=== PATIENT | male | born 1960 | race African-American/Black ===

== ENCOUNTER 2022-03-10 15:30 | Inpatient (IN) | payer MEDICAID, OTHER ==
[~2022-03-10] VITALS: Ht 180.3 cm; Wt 67.8 kg
[2022-03-10] MEDS ORDERED: ASPirin 81 mg TAB PO ONE (15:45)
[2022-03-10] MEDS ORDERED: methylPREDNISolone SOD SUCC 125 MG/2 ML VL IV ONE (15:45)
[2022-03-10 17:48] LABS: Basophils # (auto) 0 10 ^3/uL (0-0.2); Basophils % (auto) 0.4 % (0.0-2.0); Eosinophils # (auto) 0 10 ^3/uL (0-0.8); Hemoglobin 13.1 g/dL (13.5-17.5); Lymphocytes % (auto) 10.1 % (10.0-50.0)
[2022-03-10 17:50] LABS: Eosinophils % (auto) 0.3 % (0.0-7.0); Hematocrit 39.1 % (41.0-53.0); Mean Corpuscular Hemoglobin 25.9 pg (28.0-32.0); Mean Corpuscular Hgb Conc. 33.5 g/dL (32.0-36.0); Mean Corpuscular Volume 77.2 fL (80.0-100.0); Monocytes # (auto) 0.9 10 ^3/uL (0-1.3); Monocytes % (auto) 9.3 % (0.0-12.0); Neutrophils # (auto) 7.8 10 ^3/uL (1.6-8.6); Neutrophils % (auto) 79.9 % (37.0-80.0); Nucleated Red Blood Cells % 0.8 %; Red Blood Cells 5.07 10^6/uL (4.5-5.90); Red Cell Distribution Width 17.5 % (11.8-14.3); White Blood Cell 9.8 10^3/uL (4.4-10.8)
[2022-03-10 18:07] LABS: Albumin 4.1 g/dL (3.4-5.0); Calcium 9.7 mg/dL (8.5-10.1)
[2022-03-10 18:12] LABS: BUN/Creatinine Ratio 22.3; Bilirubin, Total 1.3 mg/dL (0.2-1.0); Total Protein 9.5 g/dL (6.4-8.2)
[2022-03-10] MEDS ORDERED: AZITHROMYCIN 500MG/ 250ML 250 ML IV ONE (18:30)
[2022-03-10] MEDS ORDERED: cefTRIAXone 1GM/50ML D5W 50 ML IV ONE (18:30)
[2022-03-10] MEDS ORDERED: MORPHINE SULFATE INJECTION 2 MG/ML SYRG IV PRN (21:15)
[2022-03-10] MEDS ORDERED: ONDANSETRON HCL 4 MG/2 ML VIAL IV PRN (21:15)
[2022-03-10] MEDS ORDERED: ACETAMINOPHEN 325 MG TAB PO PRN (21:15)
[2022-03-10] MEDS ORDERED: IPRATROPIUM BROM 0.5 MG/2.5ML INH SOL NEB PRN (21:15)
[2022-03-10] MEDS ORDERED: NITROGLYCERIN 0.4 MG SL TAB SL PRN (21:15)
[2022-03-10] MEDS ORDERED: ALBUTEROL SULF 2.5 MG/0.5ML(0.5%) NEB SOLN NEB PRN (21:15)
[2022-03-10] MEDS ORDERED: TEMAZEPAM 15 MG CAP PO PRN (22:00)
[2022-03-10 23:54] VITALS: BP 103/69
[2022-03-11 00:08] VITALS: BP 141/83
[2022-03-11] MEDS ORDERED: ALBUAER3 IN (01:08)
[2022-03-11 05:00] VITALS: BP 93/56
[2022-03-11 05:26] LABS: Basophils # (auto) 0 10 ^3/uL (0-0.2); Eosinophils # (auto) 0 10 ^3/uL (0-0.8); Hemoglobin 11.7 g/dL (13.5-17.5); Lymphocytes # (auto) 0.4 10 ^3/uL (0.4-5.4); Monocytes # (auto) 0.1 10 ^3/uL (0-1.3); White Blood Cell 4.5 10^3/uL (4.4-10.8)
[2022-03-11 05:29] LABS: Lymphocytes % (auto) 8.8 % (10.0-50.0); Mean Corpuscular Hemoglobin 25.8 pg (28.0-32.0); Mean Corpuscular Hgb Conc. 33.4 g/dL (32.0-36.0); Mean Corpuscular Volume 77.1 fL (80.0-100.0); Monocytes % (auto) 3.2 % (0.0-12.0); Neutrophils # (auto) 3.9 10 ^3/uL (1.6-8.6); Nucleated Red Blood Cells % 0.2 %; Red Blood Cells 4.53 10^6/uL (4.5-5.90); Red Cell Distribution Width 17.1 % (11.8-14.3)
[2022-03-11] MEDS: cefTRIAXone 1GM/50ML D5W 50 ML IV SCH (08:43)
[2022-03-11 09:00] VITALS: BP 114/68
[2022-03-11] MEDS: LISINOPRIL 5 MG TAB PO SCH (10:00)
[2022-03-11] MEDS: AZITHROMYCIN 500MG/ 250ML 250 ML IV SCH (10:47)
[2022-03-11] MEDS: PANTOPRAZOLE 40 MG TAB PO SCH (10:47)
[2022-03-11] MEDS: ENOXAPARIN SOD 40 MG/0.4 ML SYRINGE SC SCH (10:47)
[2022-03-11 13:00] VITALS: BP 108/76
[2022-03-11] MEDS ORDERED: NICOTINE 21MG/24 HR TOPICAL PATCH TD ONE (13:15)
[2022-03-11 17:00] VITALS: BP 119/74
[2022-03-11 22:00] VITALS: BP 114/76
[2022-03-12 05:00] VITALS: BP 101/67
[2022-03-12 08:57] VITALS: BP 105/68
[2022-03-12] MEDS: cefTRIAXone 1GM/50ML D5W 50 ML IV SCH (09:00)
[2022-03-12] MEDS ORDERED: NICOTINE 21MG/24 HR TOPICAL PATCH TD SCH (10:00)
[2022-03-12] MEDS: LISINOPRIL 5 MG TAB PO SCH (10:00)
[2022-03-12] MEDS: ENOXAPARIN SOD 40 MG/0.4 ML SYRINGE SC SCH (10:00)
[2022-03-12] MEDS ORDERED: AZIT500T66 PO (10:16)
[2022-03-12] MEDS ORDERED: NIC21P TOP (10:16)
[2022-03-12] MEDS: AZITHROMYCIN 500MG/ 250ML 250 ML IV SCH (10:24)
[2022-03-12] MEDS: PANTOPRAZOLE 40 MG TAB PO SCH (10:24)
[2022-03-12 12:56] VITALS: BP 111/73
[2022-03-12 13:32] VITALS: BP 105/68
== END 2022-03-12 15:50 | disposition home or self-care (01) | DRG 139 ==
LOC: ER 15:30 → EDBD 15:30 → TELE 21:07 → TELE-CENTR 23:40
PROVIDERS: ADMIT Nurse Practitioner; ATTEND Family Medicine
DX: J18.9 Pneumonia, unspecified organism (principal); J96.01 Acute respiratory failure with hypoxia; J44.1 Chronic obstructive pulmonary disease with (acute) exacerbation; I24.9 Acute ischemic heart disease, unspecified; F17.200 Nicotine dependence, unspecified, uncomplicated; J44.0 Chronic obstructive pulmonary disease with (acute) lower respiratory infection; I12.9 Hypertensive chronic kidney disease with stage 1 through stage 4 chronic kidney disease, or unspecified chronic kidney disease; N18.9 Chronic kidney disease, unspecified; Z20.822 Contact with and (suspected) exposure to COVID-19; Z71.6 Tobacco abuse counseling
CPT/HCPCS: 36415; 71045; 78582; 80053; 83605; 83880; 84484; 85025; 85379; 87040; 93005; 93970; 96365; 96367; 96375; 99291; G0378; J0696